=== PATIENT | female | born 1935 | race Hispanic/Latino ===

== ENCOUNTER 2017-02-01 16:22 | Emergency (ER) | payer MEDICARE ==
[2017-02-01 17:56] LABS: Basophils % (Auto) 0.7 % (0.0-1.8); Eosinophils % (Auto) 4.5 % (0.0-4.3); Hematocrit 36.4 % (30.3-42.9); Hemoglobin 11.5 gm/dl (10.1-14.3); Mean Corpuscular HGB Conc 32 % (30-34); Mean Corpuscular Hemoglobin 26 pg (28-32); Mean Corpuscular Volume 82 fl (79-97); Platelet Count 242 K/mm3 (140-440); Red Blood Count 4.41 M/mm3 (3.65-5.03); Red Cell Distribution Width 18.9 % (13.2-15.2); White Blood Count 5.6 K/mm3 (4.5-11.0)
[2017-02-01 18:07] LABS: Calcium 8.1 mg/dL (8.4-10.2); Potassium 3.4 mmol/L (3.6-5.0)
[2017-02-01] MEDS ORDERED: K-DUR PO ONE (20:25)
--- NOTE | 2017-02-01 20:55 | Emergency Department Report ---
ED General Adult HPI - General Chief complaint: Weakness Stated complaint: HYPOTENSION Time Seen by Provider: 02/01/17 20:17 Source: patient, family, EMS Mode of arrival: Stretcher Limitations: Physical Limitation - History of Present Illness Initial comments: Pt is a 81 yo female who pt and family states came in for a low oxygen saturation. Pt denied any complaints and states she would not be here if it had been for Dr Benavides sending her. Pt denied any chest pain, sob, fever, cough , or further concerns. Family states pt has been weak and has had some weight loss over 6 weeks. Severity scale (0 -10): 0 Improves with: none - Related Data Allergies Allergy/AdvReac Type Severity Reaction Status Date / Time No Known Allergies Allergy Unverified 03/08/13 17:36 ED Review of Systems ROS: Stated complaint: HYPOTENSION Other details as noted in HPI Constitutional: weakness Eyes: denies: eye pain, eye discharge, vision change ENT: denies: ear pain, throat pain Respiratory: denies: cough, shortness of breath, wheezing Cardiovascular: denies: chest pain, palpitations Endocrine: no symptoms reported Gastrointestinal: denies: abdominal pain, nausea, diarrhea Musculoskeletal: denies: back pain, joint swelling, arthralgia ED Past Medical Hx - Past Medical History Previous Medical History?: Yes Hx Hypertension: Yes Hx Diabetes: Yes Hx Arthritis: Yes (RA) Additional medical history: Neuropathy - Surgical History Past Surgical History?: No - Social History Smoking Status: Never Smoker ED Physical Exam - General Limitations: Physical Limitation General appearance: alert, in no apparent distress - Eye Eye exam: Present: other (left eye slightly closed compared to the right) - ENT ENT exam: Present: mucous membranes moist - Neck Neck exam: Present: normal inspection - Respiratory Respiratory exam: Present: normal lung sounds bilaterally. Absent: respiratory distress - Cardiovascular Cardiovascular Exam: Present: regular rate - GI/Abdominal GI/Abdominal exam: Present: soft, other (well healed surgical scar). Absent: distended, tenderness - Extremities Exam Extremities exam: Present: pedal edema - Back Exam Back exam: Present: normal inspection - Neurological Exam Neurological exam: Present: alert, altered - Skin Skin exam: Present: warm, dry, intact ED Course Vital Signs 02/01/17 02/01/17 02/01/17 17:44 17:45 18:00 Temperature Pulse Rate 64 62 60 Respiratory 17 17 14 Rate Blood Pressure O2 Sat by Pulse 95 96 97 Oximetry 02/01/17 02/01/17 02/01/17 18:05 18:16 18:30 Temperature Pulse Rate 60 66 Respiratory 16 16 10 L Rate Blood Pressure 120/44 134/46 O2 Sat by Pulse 96 96 Oximetry 02/01/17 02/01/17 02/01/17 18:46 19:00 19:15 Temperature Pulse Rate 61 63 63 Respiratory 16 17 14 Rate Blood Pressure 124/40 147/58 148/62 O2 Sat by Pulse 97 97 98 Oximetry 02/01/17 02/01/17 02/01/17 19:30 19:46 20:00 Temperature Pulse Rate 62 61 63 Respiratory 18 15 19 Rate Blood Pressure 127/39 107/38 123/39 O2 Sat by Pulse 95 98 96 Oximetry 02/01/17 02/01/17 02/01/17 20:16 20:30 20:33 Temperature Pulse Rate 63 Respiratory 18 22 Rate Blood Pressure 118/37 118/37 O2 Sat by Pulse 95 80 L 98 Oximetry 02/01/17 02/01/17 02/01/17 20:46 21:00 21:16 Temperature Pulse Rate Respiratory Rate Blood Pressure 146/61 107/39 107/39 O2 Sat by Pulse 97 95 96 Oximetry 02/01/17 02/01/17 02/01/17 21:30 21:34 21:37 Temperature Pulse Rate 61 Respiratory 20 16 Rate Blood Pressure 146/61 146/61 O2 Sat by Pulse 85 99 Oximetry 02/01/17 02/01/17 02/01/17 21:46 22:00 22:16 Temperature Pulse Rate 64 62 65 Respiratory 18 10 L 18 Rate Blood Pressure 146/61 112/45 112/45 O2 Sat by Pulse 98 99 98 Oximetry 02/01/17 02/01/17 02/01/17 22:30 22:46 23:00 Temperature Pulse Rate 64 64 62 Respiratory 15 13 17 Rate Blood Pressure 112/45 112/45 121/61 O2 Sat by Pulse 99 96 96 Oximetry 02/01/17 02/01/17 02/01/17 23:15 23:16 23:30 Temperature 97.7 F Pulse Rate 61 Respiratory 10 L 16 Rate Blood Pressure 121/61 O2 Sat by Pulse 97 Oximetry - Consultations Consultation #1: 02/01/17 22:[address] Estrada at [id number] who stated that she will admit the pt after a nuclear medicine scar is done ED Medical Decision Making - Lab Data Result diagrams: 02/01/17 17:33 02/01/17 17:33 Critical care attestation.: If time is entered above; I have spent that time in minutes in the direct care of this critically ill patient, excluding procedure time. ED Disposition Disposition: OP ADMIT IP TO THIS HOSP Is pt being admited?: Yes Does the pt Need Aspirin: No Condition: Stable Referrals: PRIMARY CARE, [Primary Care Provider] - 3-5 Days Time of Disposition: 01:53 (I discussed the V/Q result with Dr Estrada who now stated that she will admit the pt)
--- NOTE | 2017-02-01 23:55 | Nuclear Medicine Report ---
FINAL REPORT PROCEDURE: Nuclear medicine perfusion lung scan. TECHNIQUE: Imaging was done in multiple projections using 5 millicuries of technetium 99 M maa. Ventilation imaging was not performed because there was no xenon 133 gas available. HISTORY: Hypoxemia. COMPARISON: No prior studies are available for comparison. FINDINGS: There is mild inhomogeneity of perfusion bilaterally. There are no significant perfusion defects identified. The scan carries a very low probability of pulmonary embolism. IMPRESSION: Very low probability of pulmonary embolism.
[2017-02-02 06:51] VITALS: BP 120/60
== END 2017-02-02 03:20 | disposition admitted as inpatient to this hospital (09) ==
LOC: ED 16:22
DX: R53.1 Weakness (principal); R63.4 Abnormal weight loss; I10 Essential (primary) hypertension; E11.9 Type 2 diabetes mellitus without complications
CPT/HCPCS: 36415; 71010; 78580; 80048; 83880; 84484; 85025; 93005; 93010; 99285; A9540